=== PATIENT | female | born 2000 | race Caucasian/White ===

== ENCOUNTER 2025-02-20 15:57 | Emergency (ER) | payer OTHER, SELFPAY ==
--- NOTE | 2025-02-20 16:00 | ECG_ITS ---
Test Reason : CHEST PAIN Blood Pressure : */* mmHG Vent. Rate : 90 BPM Atrial Rate : 90 BPM P-R Int : 146 ms QRS Dur : 86 ms QT Int : 362 ms P-R-T Axes : 32 17 34 degrees QTcB Int : 442 ms Normal sinus rhythm Possible Inferior infarct , age undetermined Cannot rule out Anterior infarct , age undetermined Abnormal ECG No previous ECGs available Referred By: Generic ED Physician Electronically Signed By: ERICA RASMUSSEN
--- NOTE | 2025-02-20 16:25 | ED.GENADULT ---
HPI - General Adult General Chief complaint: General Medical Stated complaint: Chest pain/tightness Time Seen by Provider: 02/20/25 20:22 Source: patient and family (patient's ) Mode of arrival: ambulatory Limitations: no limitations History of Present Illness ED Provider: Jasmine Combs PA-C HPI narrative: Patient is a 25 year old assigned female at with a history of using Zepbound presenting to the emergency department today with chest pain and abdominal pain. Patient states that she recently increased her Zepbound dose and is now having chest wall pain and abdominal cramping. Patient states that prior to her dose adjustment - she had none of these symptoms. Patient states that she talked to her prescribing provider about this and they recommend she stop the medication. Patient denies any dizziness, lightheadedness, nausea, vomiting, fever, chills, blurry vision, double vision, loss of vision, difficulty breathing, shortness of breath, back pain, night sweats, pain with urination, increased urinary frequency, increased urinary urgency, blood in her urine or stool, syncope or a near syncopal episode, recent trauma or falls, bowel incontinence, bladder incontinence, or any other complaints at this time. Onset (ago): week(s) (1) Relieving factors: none Exacerbating factors: none Associated symptoms: chest pain Treatments prior to arrival: none Related Data Allergies Allergy/AdvReac Type Severity Reaction Status Date / Time No Known Allergies Allergy Verified 02/20/25 16:27 Review of Systems Constitutional: Constitutional: Reports no additional constitutional complaints, Denies chills, Denies fever(s) and Denies night sweats Eyes: Eyes: Reports no additional eye complaints, Denies blurry vision, Denies change in vision, Denies diplopia, Denies eye discharge, Denies loss of vision and Denies eye pain ENT: Denies dizziness Cardiovascular: Cardiovascular: Reports no additional cardiovascular complaints, Reports chest pain, Denies lightheadedness, Denies Loss of Consciousness and Denies dyspnea Respiratory: Respiratory: Reports no additional respiratory complaints and Denies dyspnea Gastrointestinal: Gastrointestinal: Reports no additional gastrointestinal complaints, Reports abdominal pain, Denies melena, Denies hematochezia, Denies change in bowel habits and Denies change in stool character Genitourinary: Genitourinary: Denies hematuria, Denies urinary frequency, Denies dysuria, Denies urinary incontinence, Denies urinary hesitancy and Denies urinary urgency Musculoskeletal: Musculoskeletal: Reports no additional musculoskeletal complaints, Denies numbness and Denies tingling Neurologic: Denies dizziness, Denies loss of vision, Denies numbness and Denies tingling Psychiatric: Psychiatric: Reports no additional psychiatric complaints Endocrine: Endocrine: Reports no additional endocrine complaints Hematologic/Lymphatic: Hematologic/Lymphatic: Reports no additional hematologic/lymphatic complaints Allergic/Immunologic: Allergic/Immunologic: Reports no additional allergic/immunologic complaints PMFSH Past Medical History Attestation statement: The following information was validated with the patient. (all information validated with the patient's ) Source: old records reviewed, obtained from family (patient's provided additional history and confirmed the history provided by the patient) and nursing notes reviewed Physical Exam ED Vital Signs: Vital Signs - 24 hr 02/20/25 16:26 Temperature 98 F Pulse Rate 95 Respiratory Rate 16 Blood Pressure 118/79 Pulse Oximetry 99 Oxygen Delivery Method Room Air BMI result Body Mass Index 38.4 Const General: cooperative, no acute distress, alert and awake Nutritional Appearance: well nourished Orientation/consciousness: patient oriented x3 HENMT Head: Yes normal to inspection and Yes atraumatic Ears: hearing grossly normal bilaterally and external ears normal General nose exam: Normal external nose present, no nasal discharge noted and no epistaxis Face and sinus: Yes normal facial exam, No abrasion and No laceration Mouth: Normal oral and palatal mucosa present, no drooling and no muffled voice Eyes General: appearance normal, both eyes and all related structures Periorbital: periorbital findings normal Eyelids: Yes eyelids normal Conjunctivae: conjunctivae normal Pupils: Equal, round and reactive pupils present EOM: EOMs intact bilaterally Neck Neck: Yes normal visual inspection, Yes full ROM and Yes no lymphadenopathy Resp Effort & Inspection: normal respiratory effort and able to speak in complete sentences Neuro General: patient oriented x3, moves all extremities and CN's II-XI intact bilaterally Cranial nerves: Yes Equal, round and reactive pupils present Cognition (Neuro): normal cognition Extrem General: Yes normal to inspection, Yes full ROM and Yes capillary refill normal Psych Appearance: grossly normal Mental Status: mental status grossly normal Affect: normal affect Attitude: cooperative Thought process: Normal thought process present Thought content: Normal thought content present Insight: Good insight present (Psych) Course Course Course Narrative: RME performed by Jasmine Combs PA-C. Patient is a 25 year old assigned female at presenting to the emergency department with chest pain / tightness. Patient has been on Zepbound for 6 months and recently upped her dose weekend of 10 of february. Detailed physical exam and review of systems are deferred to the manager of sustainability. EKG, labs, imaging, swabs ordered. Patient placed back in the waiting room pending room availability and results. Medical Decision Making Medical Decision Making [facility] Narrative: Patient is a 25 year old assigned female at with a history of using Zepbound presenting to the emergency department today with chest pain and abdominal pain. Patient's physical exam was unremarkable. Patient's blood work was unremarkable. Patient's EKG was unremarkable. Patient's clinical presentation is most consistent with an adverse reaction to Zepbound dose increase. Patient had no tachycardia, hypoxia, or recent travel - making my suspicion for PE extremely low. I explained my physical exam findings as well as all test results to the patient. I answered all questions asked by the patient. I stressed the importance of the patient taking her medication as directed (either prescribed or as the over the counter packaging recommends). I stressed the importance of the patient following up with her primary care provider. I stressed the importance of the patient returning to the emergency department immediately if her symptoms were to worsen or if she were to develop any dizziness, shortness of breath, difficulty breathing, chest pain, blurry vision, loss of vision, nausea, vomiting, abdominal pain, fever, chills, back pain, or any other complaints. Patient verbalized agreement and understanding with this treatment plan and discharge. Differential Diagnosis Differential Diagnoses: The differential diagnosis associated with the presentation includes Atypical chest pain Chest wall pain Gastritis Abdominal pain Adverse reaction to medication Adverse effect of medication Admission/Observation Consideration of admission/observation: Escalation of care including admission/observation considered Patient would have been admitted to the hospital had her work up had any findings where hospital admission was appropriate and her clinical presentation warranted hospital admission. Lab Data [facility] Lab Attestation statement: I reviewed the patient's lab results. My interpretation of these results are in the [facility] Rationale portion of this note. 02/20/25 18:07 02/20/25 18:07 Labs: Lab Results 02/20/25 Range/Units 18:07 WBC 8.6 (4.8-10.8) X10*3/uL RBC 4.66 (4.20-5.50) X10*6/uL Hgb 12.4 (12.0-16.0) g/dl Hct 37.1 (37.0-47.0) % MCV 79.6 L (80.0-98.0) fL MCH 26.6 L (27.0-33.0) pg MCHC 33.4 (31.0-35.0) g/dl RDW 13.9 (11.0-16.0) % Plt Count 302 (160-400) X10*3/uL MPV 11.5 (9.4-12.3) fL Immature Gran % (Auto) 0.1 (0.0-0.4) % Neut % (Auto) 63.5 (45-73) % Lymph % (Auto) 28.2 (20-40) % Anderson % (Auto) 7.1 (2-11) % Eos % (Auto) 0.8 (0-4) % Baso % (Auto) 0.3 (0-2) % Lymph # (Auto) 2.4 (1.2-4.9) X10*3/uL Anderson # (Auto) 0.6 (0.1-1.2) X10*3/uL Eos # (Auto) 0.1 (0.0-0.4) X10*3/uL Baso # (Auto) 0.0 (0.0-0.2) X10*3/uL Abs Immat Gran (auto) 0.01 (0.00-0.03) X10*3/uL Absolute Neuts (auto) 5.5 (2.0-8.3) x10*3/uL Absolute Nucleated RBC 0.000 (0.0-0.012) X10*3/uL Nucleated RBC % (auto) 0.0 (0.0-0.2) /100WBC Sodium 143 (135-145) mmol/L Potassium 4.1 (3.3-5.1) mmol/L Chloride 110 H (96-108) mmol/L Carbon Dioxide 26 (22-29) mmol/L Anion Gap 11 L (12-20) BUN 7 L (9-16) mg/dL Creatinine 0.68 (0.5-1.4) mg/dL Estim Creat Clear Calc 138.9 Estimated GFR > 60 Random Glucose 88 (60-115) mg/dL Calcium 9.1 (8.4-10.2) mg/dL Magnesium 2.2 (1.6-2.6) mg/dL Total Bilirubin 0.2 (0.0-1.0) mg/dL AST 20 (5-31) U/L ALT 8 (0-31) U/L Alkaline Phosphatase 81 (39-117) U/L Troponin I High Sens < 2.7 (<3.5-17.0) ng/L Total Protein 7.4 (6.5-8.0) g/dL Albumin 4.5 (3.5-5.0) g/dL Lipase 46 (8-78) U/L Beta HCG, Quant < 2 mIU/mL Independent Interpretation I performed an independent interpretation of an: EKG Interpretation: I independently interpreted this EKG and am in agreement with the below findings: Vent. Rate: 90 BPM Atrial Rate: 90 BPM P-R Int: 146 ms QRS Dur: 86 ms QT Int: 362 ms P-R-T Axes: 32 17 34 degrees QTcB Int: 442 ms Normal sinus rhythm No previous ECGs available DD/ 1604 Independent Historian Clinical information obtained from an independent historian. History obtained from or confirmed by: Spouse (patient's provided additional history and confirmed the history provided by the patient. ) Tests considered The following testing was considered but not selected: I considered obtaining a CT scan of the abdomen/pelvis as well as a chest x-ray however, the patient's current clinical presentation did not warrant this. I discussed this with the patient who verbalized understanding and agreement. Discharge Plan Discharge Clinical Impression: Atypical chest pain Patient Disposition: Home, Self-Care Instructions: Chest Wall Pain (ED) Additional Instructions: Follow up with a primary care provider. Return to the emergency department immediately if your symptoms worsen or if you develop any numbness, tingling, dizziness, shortness of breath, difficulty breathing, chest pain, blurry vision, loss of vision, nausea, vomiting, abdominal pain, fever, chills, back pain, or any other complaints. If you do not have a primary care provider - call any of the below numbers to establish and follow up with a primary care provider. [facility] Primary Care ([place]) [phone] [place] [address], [address] [facility] Primary Care ([address] [place]) [phone] [address] [facility], [address] [facility], [address] [facility] Primary Care ([address] [place]) [phone] [address] [facility], [address] [facility], [address] [facility] Primary Care ([place]) [phone] [place] [address], [address] [facility], [address] [facility] Family Medicine [phone] [address] [facility], [address] Please see the information below about our Patient Portal. If you are not yet enrolled in the [facility] Patient Portal, you will receive an enrollment email invitation following your visit to any [facility] setting. You may also self-enroll in the Patient Portal by visiting our website: [email or web address] The following information is required to access the Patient Portal: - Your [facility] Medical Record Number - Your personal home email address (must match what is in your electronic medical record, Registration staff can assist with this) - Name - Date of Capabilities of the Patient Portal: - Message some providers - View upcoming appointments - Access your health summary, medical history, and visit history - View current conditions and allergies - View procedure and lab results - View your medications, including guidelines, side effects, and precautions - Complete pre-appointment questionnaires requested by your provider - Ready summary reports of your office visits and procedures To access the Patient Portal Mobile [employer], follow these directions: - Search [employer] in the Grace Store or [employer] Store - Download the Grace - Search for [facility] - Enter your login/password Print Language: [place]
[2025-02-20 16:26] VITALS: BP 118/79; PULSE 95; RESP 16; TEMP 36.6; O2SAT 99; BMI 38.4
[2025-02-20 18:12] LABS: MANUAL DIFF FLAG NO
[2025-02-20 18:14] LABS: Hematocrit 37.1 % (37.0-47.0); Hemoglobin 12.4 g/dl (12.0-16.0); Imm Gran Abs Auto 0.01 X10*3/uL (0.00-0.03); Imm Gran Pct Auto 0.1 % (0.0-0.4); Lymphocytes Absolute Auto 2.4 X10*3/uL (1.2-4.9); Mean Corpuscular HGB Conc 33.4 g/dl (31.0-35.0); Mean Corpuscular Hemoglobin 26.6 pg (27.0-33.0); Mean Corpuscular Volume 79.6 fL (80.0-98.0); NRBC Abs Auto 0.000 X10*3/uL (0.0-0.012); NRBC Pct Auto 0.0 /100WBC (0.0-0.2); Platelet Count 302 X10*3/uL (160-400); Red Blood Count 4.66 X10*6/uL (4.20-5.50); White Blood Count 8.6 X10*3/uL (4.8-10.8)
[2025-02-20 18:32] LABS: Alanine Aminotransferase 8 U/L (0-31); Albumin Level 4.5 g/dL (3.5-5.0); Alkaline Phosphatase 81 U/L (39-117); Anion Gap 11 (12-20); Aspartate Amino Transferase 20 U/L (5-31); Blood Urea Nitrogen 7 mg/dL (9-16); Calcium 9.1 mg/dL (8.4-10.2); Carbon Dioxide 26 mmol/L (22-29); Chloride 110 mmol/L (96-108); Creatinine Clr Calc Pharmacy 138.9; Estimated Glomerular Filt Rate > 60; Lipase 46 U/L (8-78); Magnesium 2.2 mg/dL (1.6-2.6); Potassium 4.1 mmol/L (3.3-5.1); Sodium 143 mmol/L (135-145); Total Protein 7.4 g/dL (6.5-8.0); Troponin-I High Sensitivity < 2.7 ng/L (<3.5-17.0)
[2025-02-20 20:27] VITALS: BP 102/72; PULSE 77; RESP 16; TEMP 36.4; O2SAT 97
--- NOTE | 2025-02-20 20:45 | PC.NURSE ---
pt requesting to leave, declined repeat trop. PIT assessed and discharged pt. VSS
== END 2025-02-20 20:46 | disposition home or self-care (01) ==
LOC: HO.ED 20:45
PROVIDERS: Physician Assistant Medical; Emergency Provider Emergency Medicine
DX: R07.89 Other chest pain (principal); R10.9 Unspecified abdominal pain
CPT/HCPCS: 36415; 80053; 83690; 83735; 84484; 84702; 85025; 93005; 99283

== ENCOUNTER → 2025-02-20 16:00 | Outpatient (BNV) | payer OTHER, SELFPAY | PROVIDERS: Emergency Provider Emergency Medicine; Visit Provider Internal Medicine | DX: R94.31 Abnormal electrocardiogram [ECG] [EKG] (principal); R07.9 Chest pain, unspecified | CPT/HCPCS: 93010 ==

== ENCOUNTER 2025-04-25 14:33 | Emergency (ER) | payer OTHER, SELFPAY ==
[2025-04-25 14:57] VITALS: BP 156/75; PULSE 93; RESP 16; TEMP 36.4; O2SAT 100; BMI 38.8
--- NOTE | 2025-04-25 14:58 | ED.GENADULT ---
[facility] - General Adult General Chief complaint: General Medical Stated complaint: Sinus infection, meds not helping Time Seen by Provider: 04/25/25 18:05 Source: patient Mode of arrival: ambulatory Limitations: no limitations History of Present Illness ED Provider: Dr. Langley [facility] narrative: 25-year-old female a recent history of sinus infection started Augmentin this past Thursday presented hospital today for evaluation of multiple complaints including neck pain, headache, low back pain, dysuria, sinus pressure Patient stated that she went to urgent care where she was prescribed Augmentin. They told her that she has some fluid in her ears. Patient states she has been having low back pain and she is worried that she may have a kidney infection. She is also complaining of dysuria. She is complaining of neck pain that radiates up to her head. She stated that she has has a headache. Related Data Previous Rx's ?Medication ?Instructions ?Recorded lidocaine 5 % topical patch 1 patch topical DAILY #15 ea 04/25/25 Allergies Allergy/AdvReac Type Severity Reaction Status Date / Time No Known Allergies Allergy Verified 04/25/25 15:00 Review of Systems Review of Systems: Pertinent review of systems as mentioned in [facility]. All other system otherwise negative. [facility] Past Medical History [facility] Narrative: Medical history as mentioned in [facility] Social History Social History Smoked in Last 30 Days: No Advance Directives: No Advance Directives Information Provided: No Physical Exam ED Exam Exam: General: Pleasant, no distress, interacting appropriately Head: Normacephalic, atraumatic ENT: oral mucosa moist, neck supple, no tracheal deviation, TM membrane is clear no sign of erythema bilaterally. Cardiovascular: regular rate, regular rhythm, no murmurs, rubbing, gallops Respiratory: CTAB, no wheeze, rales, rhonchi Extremities: No limb pain or swelling, no calf tenderness, no CVA tenderness on cautioned Neurological: Awake and alert, no facial droop noted, no focal neurological deficit Skin: Warm and dry Psychiatric: Appropriate mood and thoughts Vital Signs: Vital Signs - 24 hr 04/25/25 14:57 04/25/25 17:43 04/25/25 19:26 Temperature 97.5 F 98.4 F 98.5 F Pulse Rate 93 92 75 Respiratory Rate 16 16 16 Blood Pressure 156/75 H 103/60 114/54 L Pulse Oximetry 100 97 99 Oxygen Delivery Method Room Air Room Air Room Air BMI result Body Mass Index 38.8 Course Course Course Narrative: This is an RME: Additional HPI, ROS, PE not included below will be deferred to primary provider. RME assessment and note performed by: Xin Whittington PA-C This is a [id number]-female who presents to the ER with a complaint of sinus pain, dizziness, headaches, and not feeling right . Reports that she was seen by Urgent care last week and was told she had fluid in her ears and was started on augmentin. No nuchal rigidity. Reports some neck pain. No fevers. Was told TSH was low in the past. Also endorsing some urinary symptoms, concern for possible UTI, no concerns for STI, no abn vag discharge or bleeding. TMs clear, OP clear, well appearing, no NAD. Plan: Labs, EKG, further ER eval needed Medications Administered Discontinued Medications Generic Name Dose Route Start Last Admin Trade Name Freq PRN Reason Stop Dose Admin Sodium Chloride 1,000 mls @ 999 mls/hr 04/25/25 18:45 04/25/25 20:14 Ns IV 04/25/25 19:45 Infused .Q1H1M BRIDGET Infusion Magnesium Sulfate 2 gm in 50 mls @ 50 mls/hr 04/25/25 18:37 04/25/25 20:14 Magnesium Sulfate/H2o IV 04/25/25 19:36 Infused ONCE ONE Infusion Ketorolac Tromethamine 15 mg 04/25/25 18:37 04/25/25 18:47 Ketorolac Tromethamine 15 Mg/Ml Vial IVPUSH 04/25/25 18:38 15 mg ONCE ONE Administration Lidocaine 1 patch 04/25/25 18:37 04/25/25 18:43 Lidocaine 4 % Patch Adh..Patch TRANSDERMA 04/25/25 18:38 1 patch ONCE ONE Administration Protocol Metoclopramide HCl 5 mg 04/25/25 18:37 04/25/25 18:51 Metoclopramide Hcl 10 Mg/2 Ml Vial IV 04/25/25 18:38 5 mg ONCE ONE Administration Medical Decision Making Medical Decision Making MDM Narrative: 25-year-old female presented hospital today for evaluation of facial pressure, headache, body aches. She has been this will neck pain and headache. We will plan to give patient a bolus IV fluid, IV Toradol will be given to the patient. Reglan and IV magnesium will be provided the patient as well. Patient's lab work did not show any sign of leukocytosis. She does not appear to be toxic. I have low suspicion for meningitis inpatient. Negative Kernig sign on exam. Negative Brudzinski sign. UA was obtained. Patient does not have any signs of UTI. No sign of blood in her urine. Creatinine is clear at this time. Patient does complain of ethmoid sinus pressure, lab work did not show any signs of leukocytosis, patient's chemistry was unremarkable. Patient's UA did not show any signs of UTI. Plan to discharge patient at this time. She does have some improvement in her neck pain however still complaining of some headache. Do not think this is meningitis in nature. Encouraged the patient continue the Augmentin. And given it some more time to see if her symptoms improve. I suspect patient likely has viral sinus infection. Differential Diagnosis Differential Diagnoses: The differential diagnosis associated with the presentation includes Sinus infection, viral illness, UTI, nephrolithiasis Lab Data MDM Lab Attestation statement: I reviewed the patient's lab results. 04/25/25 15:58 04/25/25 15:58 Labs: Lab Results 04/25/25 04/25/25 Range/Units 15:58 16:33 WBC 10.2 (4.8-10.8) X10*3/uL RBC 4.31 (4.20-5.50) X10*6/uL Hgb 11.4 L (12.0-16.0) g/dl Hct 34.4 L (37.0-47.0) % MCV 79.8 L (80.0-98.0) fL MCH 26.5 L (27.0-33.0) pg MCHC 33.1 (31.0-35.0) g/dl RDW 13.8 (11.0-16.0) % Plt Count 273 (160-400) X10*3/uL MPV 10.9 (9.4-12.3) fL Immature Gran % (Auto) 0.3 (0.0-0.4) % Neut % (Auto) 80.4 H (45-73) % Lymph % (Auto) 12.5 L (20-40) % Casey % (Auto) 4.3 (2-11) % Eos % (Auto) 2.1 (0-4) % Baso % (Auto) 0.4 (0-2) % Lymph # (Auto) 1.3 (1.2-4.9) X10*3/uL Casey # (Auto) 0.4 (0.1-1.2) X10*3/uL Eos # (Auto) 0.2 (0.0-0.4) X10*3/uL Baso # (Auto) 0.0 (0.0-0.2) X10*3/uL Abs Immat Gran (auto) 0.03 (0.00-0.03) X10*3/uL Absolute Neuts (auto) 8.2 (2.0-8.3) x10*3/uL Absolute Nucleated RBC 0.000 (0.0-0.012) X10*3/uL Nucleated RBC % (auto) 0.0 (0.0-0.2) /100WBC Sodium 144 (135-145) mmol/L Potassium 3.9 (3.3-5.1) mmol/L Chloride 108 (96-108) mmol/L Carbon Dioxide 29 (22-29) mmol/L Anion Gap 11 L (12-20) BUN 7 L (9-16) mg/dL Creatinine 0.68 (0.5-1.4) mg/dL Estim Creat Clear Calc 139.7 Estimated GFR > 60 Random Glucose 130 H (60-115) mg/dL Calcium 9.3 (8.4-10.2) mg/dL Magnesium 2.0 (1.6-2.6) mg/dL Total Bilirubin 0.3 (0.0-1.0) mg/dL Direct Bilirubin 0.1 (0.0-0.5) mg/dL AST 24 (5-31) U/L ALT 9 (0-31) U/L Alkaline Phosphatase 80 (39-117) U/L Total Protein 7.2 (6.5-8.0) g/dL Albumin 4.4 (3.5-5.0) g/dL TSH 0.46 (0.32-4.0) uIU/mL Beta HCG, Quant < 2 mIU/mL Urine Color Yellow Urine Appearance Clear Urine pH 7.0 (5.0-9.0) Ur Specific Rembert <= 1.005 (1.005-1.025) Urine Protein Negative (Neg-Trace) mg/dL Urine Glucose (UA) Negative (Negative) mg/dL Urine Ketones Negative (Negative) mg/dL Urine Blood Negative (Negative) Urine Nitrite Negative (Negative) Ur Leukocyte Esterase Negative (Negative) COVID-19 (HERMILA) Negative (Negative) COVID-19 Clin Com See Note Influenza Type A (HAYES) Negative (Negative) Influenza Type B (HAYES) Negative (Negative) Influenza A & B Note See Note Discharge Plan Discharge Clinical Impression: Acute viral syndrome Acute infection of sinus Qualifiers: Sinusitis location: unspecified location Recurrence: non-recurrent Qualified Code(s): J01.90 - Acute sinusitis, unspecified Patient Disposition: Home, Self-Care Instructions: Rhinosinusitis (ED) Additional Instructions: May continue the augmentin and flonase. Continue conservative treatment. Follow up with your primary care doctor. Prescriptions: New lidocaine 5 % adhesive patch,medicated 1 patch topical DAILY Qty: 15 0RF Rx Instructions: leave on most painful area for up to 12 hrs Print Language: Tajik
--- NOTE | 2025-04-25 15:01 | ECG_ITS ---
Test Reason : dizziness Blood Pressure : */* mmHG Vent. Rate : 82 BPM Atrial Rate : 82 BPM P-R Int : 150 ms QRS Dur : 82 ms QT Int : 374 ms P-R-T Axes : 40 24 22 degrees QTcB Int : 436 ms Normal sinus rhythm with sinus arrhythmia Normal ECG When compared with ECG of 20-Feb-2025 16:04, No significant change was found Referred By: Xin Whittington Electronically Signed By: ERICA RASMUSSEN
[2025-04-25 16:04] LABS: MANUAL DIFF FLAG NO
[2025-04-25 16:06] LABS: Hematocrit 34.4 % (37.0-47.0); Hemoglobin 11.4 g/dl (12.0-16.0); Imm Gran Abs Auto 0.03 X10*3/uL (0.00-0.03); Imm Gran Pct Auto 0.3 % (0.0-0.4); Lymphocytes Absolute Auto 1.3 X10*3/uL (1.2-4.9); Mean Corpuscular HGB Conc 33.1 g/dl (31.0-35.0); Mean Corpuscular Hemoglobin 26.5 pg (27.0-33.0); Mean Corpuscular Volume 79.8 fL (80.0-98.0); NRBC Abs Auto 0.000 X10*3/uL (0.0-0.012); NRBC Pct Auto 0.0 /100WBC (0.0-0.2); Platelet Count 273 X10*3/uL (160-400); Red Blood Count 4.31 X10*6/uL (4.20-5.50); White Blood Count 10.2 X10*3/uL (4.8-10.8)
[2025-04-25 16:23] LABS: IDNOW Serial# 58CA691E; Influenza B2 Negative (Negative)
[2025-04-25 16:24] LABS: COVID-19 Test Negative (Negative); IDNOW Serial# 55D5AD1C
[2025-04-25 16:30] LABS: Alanine Aminotransferase 9 U/L (0-31); Albumin Level 4.4 g/dL (3.5-5.0); Alkaline Phosphatase 80 U/L (39-117); Anion Gap 11 (12-20); Aspartate Amino Transferase 24 U/L (5-31); Blood Urea Nitrogen 7 mg/dL (9-16); Calcium 9.3 mg/dL (8.4-10.2); Carbon Dioxide 29 mmol/L (22-29); Chloride 108 mmol/L (96-108); Creatinine Clr Calc Pharmacy 139.7; Estimated Glomerular Filt Rate > 60; Magnesium 2.0 mg/dL (1.6-2.6); Potassium 3.9 mmol/L (3.3-5.1); Sodium 144 mmol/L (135-145); Total Protein 7.2 g/dL (6.5-8.0)
[2025-04-25 16:42] LABS: Appearance Urine Clear; Glucose Urine UA Negative (Negative); PH 7.0 (5.0-9.0); Specific Gravity - Urine <= 1.005 (1.005-1.025)
[2025-04-25 17:43] VITALS: BP 103/60; PULSE 92; RESP 16; TEMP 36.9; O2SAT 97
[2025-04-25] MEDS: Lidocaine 4 % Patch ADH..PATCH 1 PATCH TRANSDERMA (18:43)
[2025-04-25] MEDS: Magnesium Sulfate/H2O 2 GM/50 ML PIGGYBACK IV (18:56)
--- OUTSIDE RECORDS SUMMARY | 2025-04-25 19:15 | XMS_ITS | Encounter Summary ---
Author Organization [facility] Address [address] [facility] [address] [place] [phone] Phone Care Team Providers Care Pediatrician Active Practice Name Role Phone Pcp, Unknown Primary Care Provider Evan Martins MD Unavailable [phone] Reason for Referral * Physical Therapy (Routine) - New Request Specialty Diagnoses / Procedures Referred By Roro wright Referred To Contact Physical Therapy Diagnoses Encounter for rehabilitation Elvia Bolaños NP [address] [place] [address] Phone: tel: fax: [address] [address] Phone: tel: Referral ID Status Reason Start Date Expiration Date V isits Requested Visits Authorized [id number] New Request 04/24/2025 04/24/2026 1 1 Encounter Details Date Type Department Care Team (Latest Contact Info) Description 04/24/2025 Transcribe Orders [facility] [address] [place] [address] Elvia Bolaños NP [address] [place] [address] Encounter for rehabilitation (Primary Dx) Social History Tobacco Use Types Packs/Day Years Used Date Smoking Tobacco: Never Assessed Education Answer Date Recorded Are you interested in more education? Not on phillip e 12/02/2023 Are you concerned about learning? Not on file 12/02/2023 No 12/02/2023 No 12/02/2023 Digital Access Answer Date Recorded No 12/02/2023 No 12/02/2023 Reliable internet access at home? Not on file 12/02/2023 Device with a working camera? Not on file Comments Unknown Sex and Gender Information Value Date Recorded Sex Assigned at Not on file Legal Sex Female 3:42 PM EST Gender Identity Not on file Sexual Orientation Not on file documented as of this encounter Plan of Treatment Scheduled Referrals Name Type Priority Associated Diagnoses Orde r Schedule Ambulatory referral to [facility] Physical Therapy Outpatient Referral Routine Encounter for rehabilitation Ordered: 04/24/2025 documented as of this encounter Visit Diagnoses Diagnosis Encounter for rehabilitation- Primary documented in this encounter Care Teams Pediatrician Active Practice Relationship Specialty Start Date End Date Pcp, Unknown PCP - General 10/14/23 Evan Gauthier MD [address] [place] [address] [address] [place] [address] Gynecology 02/15/24 documented as of this encounter Additional Source Comments The information contained in this document represents components of the legal health record. It is not the complete legal health record.[facility]
--- OUTSIDE RECORDS SUMMARY | 2025-04-25 19:15 | XMS_ITS | Encounter Summary ---
Author Organization [facility] Address [address] [place] [address] [place] [address] Phone Care Team Providers Care Android Ios Developer Name Role Phone Pcp, Unknown Primary Care Provider Evan Martins MD Unavailable [phone] Reason for Referral * Physical Therapy (Routine) - Closed Specialty Diagnoses / Procedures Referred By Roro wright Referred To Contact Physical Therapy Diagnoses Encounter for rehabilitation Vivian Noe DO [address] [place] [address] Phone: tel: [facility] [address] [place] [address] Phone: tel: Referral ID Status Reason Start Date Expiration Date Visits Re quested Visits Authorized [id number] Closed 02/15/2024 08/09/2024 25 25 Encounter Details Date Type Department Care Team (Latest Contact Info) Description 02/15/2024 Transcribe Orders [facility] [address] [place] [address] Vivian Noe DO [address] [place] [address] Encounter for rehabilitation (Primary Dx) Social History [...] Diagnoses Orde r Schedule Ambulatory referral to [facility] Physical Therapy Outpatient Referral Routine Encounter for rehabilitation Ordered: 02/15/2024 documented as of this encounter Visit Diagnoses Diagnosis Encounter for rehabilitation- Primary documented in this encounter Care Teams Android Ios Developer Relationship Specialty Start Date End Date Pcp, Unknown PCP - General 10/14/23 Evan Gauthier MD [address] [place] [address] [address] [place] [address] Gynecology 02/15/24 documented as of this encounter Additional Source Comments The information contained in this document represents components of the legal health record. It is not the complete legal health record.[facility]
--- OUTSIDE RECORDS SUMMARY | 2025-04-25 19:15 | XMS_ITS | Clinical Summary ---
Author Organization [facility] Address [address] [place] [phone] Phone Care Team Providers Care Collar Padder Blindstitch Name Role Phone Pcp, Unknown Primary Care Provider Evan Martins MD Unavailable Encounters Date Type Department Care Team Description 04/24/2025 Transcribe Orders [facility] [address] [place] [address] Elvia Bolaños NP Encounter for rehabilitation (Primary Dx) from Last 3 Months Social History Tobacco Use Types Packs/Day Years [...] on file Sexual Orientation Not on file Plan of Treatment Health Maintenance Due Date Last Done Comments Adult Td,Tdap Booster 1998 DEPRESSION SCREENING 2010 SMOKING Hx and SMOKELESS TOB ACCO SCREENING 2011 HEPATITIS C SCREENING 01/21/2016 HIV ONE-TIME SCREENING (18-6 5 YEARS) 01/21/2016 PAP SMEAR 2019 INFLUENZA VACCINE (#1) 2025 COVID-19 VACCINE (1 - 2024-2 5 season) 2025 HEPATITIS A VACCINES Aged Out No long er eligible based on patient's age to complete this topic HIB VACCINES Aged Out No longer eligi ble based on patient's age to complete this topic MENINGOCOCCAL VACCINES (ACWY) Aged Out No longer eligible based on patient's age to complete this topic MENINGOCOCCAL VACCINES (B) Aged Out N o longer eligible based on patient's age to complete this topic PNEUMOCOCCAL VACCINES (0-49 years) Aged Out No longer eligible based on patient's age to complete this topic Medical Devices Not on file Insurance ([place]) [address] [place] [address] [place] [address] [place] [place] [address] ACO Care Teams Collar Padder Blindstitch Relationship Specialty Start Date End Date Pcp, Unknown PCP - General 10/14/23 Evan Gauthier MD [address] [place] [address] Drive [address] [place] [address] Gynecology 02/15/24 Additional Source Comments The information contained in this document represents components of the legal health record. It is not the complete legal health record.[facility]
[2025-04-25 19:26] VITALS: BP 114/54; PULSE 75; RESP 16; TEMP 36.9; O2SAT 99
[2025-04-25 20:16] VITALS: BP 108/61; PULSE 86; RESP 18; TEMP 36.9; O2SAT 99
[2025-04-25 20:26] VITALS: BP 108/61; PULSE 86; RESP 18; TEMP 36.9; O2SAT 99
== END 2025-04-25 20:27 | disposition home or self-care (01) ==
PROVIDERS: Physician Assistant Medical; Emergency Provider Student in an Organized Health Care Education/Training Program; PCP Internal Medicine
DX: J01.90 Acute sinusitis, unspecified (principal); R42 Dizziness and giddiness; M54.2 Cervicalgia; R51.9 Headache, unspecified; M54.50 Low back pain, unspecified; R30.0 Dysuria; Z03.818 Encounter for observation for suspected exposure to other biological agents ruled out
CPT/HCPCS: 36415; 80048; 80076; 81003; 83735; 84443; 84702; 85025; 87502; 87635; 93005; 96361; 96374; 96375; 99284; 99285; J1885; J2765; J3475

== ENCOUNTER → 2025-04-25 15:01 | Outpatient (BNV) | payer OTHER, SELFPAY | PROVIDERS: Emergency Provider Student in an Organized Health Care Education/Training Program; PCP Internal Medicine; Visit Provider Internal Medicine | DX: R42 Dizziness and giddiness (principal) | CPT/HCPCS: 93010 ==